=== PATIENT | female | born 1990 | race Caucasian/White ===

== ENCOUNTER 2017-07-12 13:52 | Emergency (ER) | payer SELFPAY ==
[~2017-07-12] VITALS: Ht 175.3 cm; Wt 61.4 kg
[2017-07-12 13:53] VITALS: BP 129/82; PULSE 148; RESP 20; TEMP 98.4; O2SAT 100
[2017-07-12 14:18] VITALS: BP 147/83; PULSE 110; PULSE 117; RESP 20; O2SAT 98
--- NOTE | 2017-07-12 14:19 | PD ---
HPI Chief Complaint: Cardiac Complaint Time Seen by Provider: 14:16 Travel History International Travel<30 days: No Contact w/Intl Traveler<30days: No Traveled to known affect area: No History of Present Illness HPI LOCATION:CHEST QUALITY:FLUTTERING/PALPITATIONS SEVERITY:MODERATE TIMING: DURATION:2 MONTHS, INTERMITTENTLY OCCURRING CONTACTS N/A: MODIFYING FACTORS:NO ALLEVIATING/AGGRAVATING FACTORS ASSOCIATED SYMPTOMS: DENIES FEVER/COUGH/CP/ABDPAIN/BACKPAIN/N/V/D/ PCP: DENIES HAVING A PCP PSHX:DENIES PMHX: DENIES PFSH Past Medical History ?: Not Social History Tobacco Use: No Allergies-Medications (Allergen,Severity, Reaction): Coded Allergies: No Known Allergies (Unverified , 07/12/17) Reported Meds & Prescriptions Reported Meds & Active Scripts Active Ambien (Zolpidem Tartrate) 10 Mg Tab 10 Mg PO HS PRN 3 Days Review of Systems Except as stated in HPI: all other systems reviewed are Neg General / Constitutional: No: Fever Eyes: No: Visual changes HENT: No: Headaches Cardiovascular: Positive: Palpitations Respiratory: No: Shortness of Breath Gastrointestinal: No: Abdominal Pain Genitourinary: No: Dysuria Musculoskeletal: No: Pain Skin: No Rash Neurologic: No: Weakness Psychiatric: No: Depression Endocrine: No: Polydipsia Hematologic/Lymphatic: No: Easy Bruising Physical Exam Narrative GENERAL: SKIN: Warm and dry. HEAD: Atraumatic. Normocephalic. EYES: Pupils equal and round. No scleral icterus. No injection or drainage. ENT: No nasal bleeding or discharge. Mucous membranes pink and moist. NECK: Trachea midline. No JVD. CARDIOVASCULAR: Regular rate and rhythm. RESPIRATORY: No accessory muscle use. Clear to auscultation. Breath sounds equal bilaterally. GASTROINTESTINAL: Abdomen soft, non-tender, nondistended. MUSCULOSKELETAL: Extremities without clubbing, cyanosis, or edema. No obvious deformities. NEUROLOGICAL: Awake and alert. No obvious cranial nerve deficits. Motor grossly within normal limits. Five out of 5 muscle strength in the arms and legs. Normal speech. PSYCHIATRIC: Appropriate mood and affect; insight and judgment normal. Data Data Last Documented VS Vital Signs Date Time Temp Pulse Resp B/P (MAP) Pulse Ox O2 Delivery O2 Flow Rate FiO2 07/12/17 20:25 112 16 126/84 (98) 99 07/12/17 14:33 17 Nasal Cannula 2.00 07/12/17 13:53 98.4 Orders Orders Electrocardiogram (07/12/17 ) B-Type Natriuretic Peptide (07/12/17 14:19) Ckmb (Isoenzyme) Profile (07/12/17 14:19) Complete Blood Count With Diff (07/12/17 14:19) Comprehensive Metabolic Panel (07/12/17 14:19) D-Dimer (07/12/17 14:19) Prothrombin Time / Inr (Pt) (07/12/17 14:19) Act Partial Throm Time (Ptt) (07/12/17 14:19) Troponin I (07/12/17 14:19) Lipase (07/12/17 14:19) Chest, Single Ap (07/12/17 14:19) Ecg Monitoring (07/12/17 14:19) Bilateral Bp Monitoring (07/12/17 14:19) Iv Access Insert/Monitor (07/12/17 14:19) Oximetry (07/12/17 14:19) Oxygen Administration (07/12/17 14:19) Thyroid Stimulating Hormone (07/12/17 14:19) Urinalysis - C+S If Indicated (07/12/17 14:23) Ed Urine Pregnancytest Poc (07/12/17 14:23) Drug Screen, Random Urine (07/12/17 14:23) Ct Pulmonary Angiogram (07/12/17 16:03) Iohexol 350 Inj (Omnipaque 350 Inj) (07/12/17 19:00) Ed Discharge Order (07/12/17 19:47) Labs Laboratory Tests Test 07/12/17 14:25 07/12/17 20:05 White Blood Count 8.4 TH/MM3 Red Blood Count 4.85 MIL/MM3 Hemoglobin 14.3 GM/DL Hematocrit 41.8 % Mean Corpuscular Volume 86.2 FL Mean Corpuscular Hemoglobin 29.6 PG Mean Corpuscular Hemoglobin Concent 34.3 % Red Cell Distribution Width 12.8 % Platelet Count 325 TH/MM3 Mean Platelet Volume 8.5 FL Neutrophils (%) (Auto) 71.1 % Lymphocytes (%) (Auto) 19.8 % Monocytes (%) (Auto) 8.0 % Eosinophils (%) (Auto) 0.3 % Basophils (%) (Auto) 0.8 % Neutrophils # (Auto) 6.0 TH/MM3 Lymphocytes # (Auto) 1.7 TH/MM3 Monocytes # (Auto) 0.7 TH/MM3 Eosinophils # (Auto) 0.0 TH/MM3 Basophils # (Auto) 0.1 TH/MM3 CBC Comment DIFF FINAL Differential Comment Prothrombin Time 11.3 SEC Prothromb Time International Ratio 1.1 RATIO Activated Partial Thromboplast Time 26.3 SEC D-Dimer Quantitative (PE/DVT) 0.52 MG/L FEU Blood Urea Nitrogen 8 MG/DL Creatinine 0.63 MG/DL Random Glucose 90 MG/DL Total Protein 8.6 GM/DL Albumin 4.7 GM/DL Calcium Level 9.1 MG/DL Alkaline Phosphatase 67 U/L Aspartate Amino Transf (AST/SGOT) 10 U/L Alanine Aminotransferase (ALT/SGPT) 17 U/L Total Bilirubin 0.3 MG/DL Sodium Level 138 MEQ/L Potassium Level 3.7 MEQ/L Chloride Level 107 MEQ/L Carbon Dioxide Level 23.9 MEQ/L Anion Gap 7 MEQ/L Estimat Glomerular Filtration Rate 112 ML/MIN Total Creatine Kinase 51 U/L Troponin I LESS THAN 0.02 NG/ML B-Type Natriuretic Peptide 52 PG/ML Lipase 165 U/L Thyroid Stimulating Hormone 3rd Gen 1.220 uIU/ML Urine Color YELLOW Urine Turbidity CLEAR Urine pH 7.0 Urine Specific [place] 1.007 Urine Protein NEG mg/dL Urine Glucose (UA) NEG mg/dL Urine Ketones 10 mg/dL Urine Occult Blood LARGE Urine Nitrite NEG Urine Bilirubin NEG Urine Urobilinogen LESS THAN 2.0 MG/DL Urine Leukocyte Esterase NEG Urine RBC /hpf Urine WBC 4 /hpf Urine Squamous Epithelial Cells 1 /hpf Urine Bacteria OCC /hpf Microscopic Urinalysis Comment CULT NOT INDICATED Urine Opiates Screen NEG Urine Barbiturates Screen NEG Urine Amphetamines Screen NEG Urine Benzodiazepines Screen NEG Urine Cocaine Screen NEG Urine Cannabinoids Screen NEG MDM Medical Decision Making Medical Screen Exam Complete: Yes Emergency Medical Condition: Yes Medical Record Reviewed: Yes Interpretation(s) SINUS TACH 127, INCOMPLETE RBBB, NO STEMI PATTERN Differential Diagnosis ANEMIA V ELECTROLYTE ABNL V HYPERTHYROID V DYSRHYTHMIA Narrative Course NO ANEMIA, NO E/O HYPERTHYROID, NO ARRYTHMIA HOWEVER D DIMER WAS ELEVATED AND PATIENT IS AWAITING CT CHEST R/O PE....AT [address] CHEST FOR PE, PATIENT IS IN NO DISTRESS AND IS SYMPTOM FREE. PATIENT WILL BE D/C FOR OUTPATIENT CARDIAC EVALUATION Diagnosis Primary Impression: PALPITATIONS Referrals: David De Los Santos MD FOR FURTHER EVALUATION AND CARE OF YOUR PALPITATIONS (ECHO, HOLTER MONITOR, MARKER SHIPMENTS EVALUATION) [facility] FOR FURTHER MEDICAL CARE Patient Instructions: General Instructions, Heart Palpitations (ED) Scripts Zolpidem (Ambien) 10 Mg Tab 10 MG PO HS Y for INSOMNIA for 3 Days, #3 TAB 0 Refills Prov: Sung Johnson MD 07/12/17 Disposition: DISCHARGE HOME Condition: Stable Sung Johnson MD Jul 12, 2017 14:19
[2017-07-12 14:23] VITALS: BP 132/84; PULSE 125
[2017-07-12 14:33] VITALS: PULSE 102; RESP 20; O2SAT 17
--- NOTE | 2017-07-12 14:45 | RADRPT ---
EXAM DATE/TIME: 07/12/2017 14:41 [facility] COMPARISON: No previous studies available for comparison. INDICATIONS : Heart palpitations. MEDICAL HISTORY : None. SURGICAL HISTORY : None. ENCOUNTER: Initial ACUITY: 2 months PAIN SCORE: 0/10 LOCATION: Bilateral chest FINDINGS: Portable AP view of the chest demonstrates a normal-sized cardiac silhouette. No effusion, consolidat ion, or pneumothorax is visualized. The bones and soft tissues demonstrate no acute abnormality. CONCLUSION: No acute cardiopulmonary abnormality is identified. Kishor Locke MD on July 12, 2017 at 14:42 Board Certified Radiologist. This report was verified electronically.
[2017-07-12 15:00] LABS: BASOPHIL # 0.1 TH/MM3 (0-0.2); BASOPHIL % 0.8 % (0.0-2.0); EOSINOPHIL % 0.3 % (0.0-4.0); HEMATOCRIT 41.8 % (35.0-46.0); HEMOGLOBIN 14.3 GM/DL (11.6-15.3); LYMPH % 19.8 % (9.0-44.0); LYMPHOCYTE # 1.7 TH/MM3 (1.0-4.8); MEAN CELL VOLUME 86.2 FL (80.0-100.0); MEAN CORPUSCULAR HEMOGLOBIN 29.6 PG (27.0-34.0); MEAN CORPUSCULAR HGB CONC 34.3 % (32.0-36.0); MEAN PLATELET VOLUME 8.5 FL (7.0-11.0); MONOCYTE # 0.7 TH/MM3 (0-0.9); NEUT % 71.1 % (16.0-70.0); PLATELET COUNT 325 TH/MM3 (150-450); RED BLOOD COUNT 4.85 MIL/MM3 (4.00-5.30); RED CELL DISTRIBUTION WIDTH 12.8 % (11.6-17.2); WHITE BLOOD COUNT 8.4 TH/MM3 (4.0-11.0)
[2017-07-12 15:29] LABS: INTERNATIONAL NORMALIZED RATIO 1.1 RATIO; PROTHROMBIN TIME - PATIENT 11.3 SEC (9.8-11.6)
[2017-07-12 15:36] LABS: D-DIMER 0.52 MG/L FEU (0.00-0.50)
[2017-07-12 15:40] LABS: ALBUMIN 4.7 GM/DL (3.4-5.0); AST (GOT) 10 U/L (15-37); BICARBONATE 23.9 MEQ/L (21.0-32.0); CALCIUM 9.1 MG/DL (8.5-10.1); CHLORIDE 107 MEQ/L (98-107); CREATININE 0.63 MG/DL (0.50-1.00); GLOMERULAR FILTRATION RATE 112 ML/MIN (>89); GLUCOSE,RANDOM 90 MG/DL (74-106); LIPASE 165 U/L (73-393); SODIUM (NA) 138 MEQ/L (136-145)
[2017-07-12 15:50] LABS: ALKALINE PHOSPHATASE 67 U/L (45-117); ALT (GPT) 17 U/L (10-53); BLOOD UREA NITROGEN 8 MG/DL (7-18); TOTAL BILIRUBIN ADULT 0.3 MG/DL (0.2-1.0); TOTAL PROTEIN 8.6 GM/DL (6.4-8.2); TROPONIN I LESS THAN 0.02 NG/ML (0.02-0.05)
[2017-07-12] MEDS ORDERED: IOHEXOL 350 MG/ML 10 ML VIAL (for RAD DIAG) IVCONTRAST ONE (19:00)
--- NOTE | 2017-07-12 19:05 | RADRPT ---
EXAM DATE/TIME: 07/12/2017 18:45 [facility] COMPARISON: No previous studies available for comparison. INDICATIONS : Chest pain. IV CONTRAST: 50 cc Omnipaque 350 (iohexol) IV RADIATION DOSE: 5.39 CTDIvol (mGy) MEDICAL HISTORY : None SURGICAL HISTORY : None. ENCOUNTER: Initial ACUITY: 1 day PAIN SCALE: 4/10 LOCATION: Bilateral chest TECHNIQUE: Volumetric scanning of the chest was performed using a pulmonary embolism protocol MIP images were re constructed. Using automated exposure control and adjustment of the mA and/or kV according to patien t size, radiation dose was kept as low as reasonably achievable to obtain optimal diagnostic quality images. DICOM format image data is available electronically for review and comparison. Follow-up recommendations for detected pulmonary nodules are based at a minimum on nodule size and pa tient risk factors according to Fleischner Society Guidelines. FINDINGS: PULMONARY ARTERIES: No filling defects are seen in the pulmonary arteries through the segmental level. LUNGS: There is no consolidation or pneumothorax . No concerning pulmonary nodule is visualized. PLEURAE: There is no pleural thickening or pleural effusion. MEDIASTINUM: There is good visualization of the great vessels of the middle mediastinum. No evidence of mediastin al or hilar adenopathy/mass. MUSCULOSKELETAL: Within normal limits for patient age. MISCELLANEOUS: The visualized upper abdominal organs demonstrate no acute abnormality. CONCLUSION: 1. No acute abnormality. 2. Pectus excavatum. Kendall Siu Jr., MD on July 12, 2017 at 18:59 Board Certified Radiologist. This report was verified electronically.
[2017-07-12] MEDS ORDERED: AMBI10TA PO (20:03)
[2017-07-12 20:25] VITALS: BP 126/84
[2017-07-12 20:43] LABS: BACTERIA, URINE OCC /hpf; BILIRUBIN, URINE NEG (NEG); BLOOD, URINE LARGE (NEG); GLUCOSE,URINE NEG (NEG); KETONE, URINE 10 mg/dL (NEG); NITRITE,URINE NEG (NEG); SQUAMOUS EPITHELIAL CELL URINE 1 /hpf (0-5); URINE COLOR YELLOW (YELLW/STRAW); URINE LEUKOCYTE ESTERASE NEG (NEG)
--- NOTE | 2017-07-13 22:49 | EKG ---
Date Performed: 07/12/2017 Time Performed: 14:18:55 PTAGE: 27 years EKG: SINUS TACHYCARDIA BORDERLINE RIGHT AXIS DEVIATION POSSIBLE RIGHT VENTRICULAR CONDUCTION DEL AY MODERATE ST DEPRESSION ABNORMAL ECG PREVIOUS TRACING : 06/03/2002 07.34 Since previous tracing, no significant change noted DOCTOR: Donny Wood Interpretating Date/Time 07/13/2017 22:48:55
== END 2017-07-12 20:34 | disposition home or self-care (01) ==
LOC: NEPE 13:52
DX: R00.2 Palpitations (principal); I45.10 Unspecified right bundle-branch block; R00.0 Tachycardia, unspecified; R94.31 Abnormal electrocardiogram [ECG] [EKG]; Q67.6 Pectus excavatum
CPT/HCPCS: 71045; 71275; 80053; 80307; 81001; 82550; 83690; 83880; 84443; 84484; 84703; 85025; 85379; 85610; 85730; 93005; 99285; Q9967